=== PATIENT | female | born 1940 | race Caucasian/White ===

== ENCOUNTER → 2018-06-16 | Outpatient (CLI) | payer MEDICARE ==
[~2018-06-16] MED LIST: CALC-709 PO; CHOL10002 PO; FOLIC ACID PO; LEVO75TA5 PO; MAGNESIUM PO; POTASSIUM PO
[2018-06-16 10:20] LABS: BASOPHILS # (AUTO) 0.03 x10^3/uL (0-0.1); BASOPHILS % (AUTO) 1 % (0-1); EOSINOPHILS # (AUTO) 0.14 x10^3/uL (0-0.4); EOSINOPHILS % (AUTO) 2 % (1-7); LYMPHOCYTES # (AUTO) 1.57 x10^3/uL (1-3.4); LYMPHOCYTES % (AUTO) 25 % (22-44); MD NO; MEAN CORPUSCULAR HEMOGLOBIN 31.3 pg (27.0-34.8); MEAN CORPUSCULAR HGB CONC 34.2 g/dL (32.4-35.8); MEAN CORPUSCULAR VOLUME 91.4 fL (80-100); MEAN PLATELET VOLUME 8.6 fL (7.4-10.4); MONOCYTES # (AUTO) 0.37 x10^3/uL (0.2-0.8); MONOCYTES % (AUTO) 6 % (2-9); NEUTROPHILS # (AUTO) 4.23 x10^3/uL (1.8-6.8); NEUTROPHILS % (AUTO) 67 % (42-75); PLATELET COUNT 216 x10^3/uL (130-400); RED CELL DISTRIBUTION WIDTH 13.9 % (9.6-15.2)
[2018-06-16 10:32] LABS: ALBUMIN 3.8 g/dL (3.4-5.0); ANION GAP 8 mmol/L (5-15); CALCIUM 8.8 mg/dL (8.5-10.1); CHLORIDE 107 mmol/L (98-107)
[2018-06-16 10:36] LABS: ALANINE AMINOTRANSFERASE 20 U/L (12-78); ALKALINE PHOSPHATASE 95 U/L (45-117); BILIRUBIN,TOTAL 0.8 mg/dL (0.2-1.0); CREATININE 0.83 mg/dL (0.55-1.02); TOTAL PROTEIN 7.5 g/dL (6.4-8.2)
== END | disposition home or self-care (01) ==
LOC: STAR 09:15
PROVIDERS: ATTEND Specialist
DX: Z01.818 Encounter for other preprocedural examination (principal); R22.1 Localized swelling, mass and lump, neck; Z85.828 Personal history of other malignant neoplasm of skin
CPT/HCPCS: 36415; 80053; 85025; 93005

== ENCOUNTER 2018-06-23 09:19 | Inpatient (IN) | payer MEDICARE ==
[~2018-06-23] VITALS: Ht 149.9 cm; Wt 72.8 kg
[2018-06-23] MEDS ORDERED: LACTATED RINGERS 1,000 ML IV SCH (12:36)
[2018-06-23 12:38] VITALS: BP 159/81
[2018-06-23] MEDS ORDERED: EPHEDRINE 50 MG/ML, 1ML ONE (14:00)
[2018-06-23] MEDS ORDERED: SUCCINYLCHOLINE 20 MG/ML, 10ML ONE (14:00)
[2018-06-23] MEDS ORDERED: PROPOFOL 10 MG/ML, 20ML ONE (14:09)
[2018-06-23] MEDS ORDERED: LIDOCAINE-MPF 2% ,5ML ONE (14:09)
[2018-06-23] MEDS ORDERED: ROCURONIUM 10MG/ML,5ML ONE (14:09)
[2018-06-23] MEDS ORDERED: CEFAZOLIN 1,000 MG ONE (14:10)
[2018-06-23] MEDS ORDERED: FENTANYL PF 100 MCG/2ML ONE ×2 (14:16→17:28)
[2018-06-23] MEDS ORDERED: PROPOFOL 50 ML ONE ×2 (14:31→15:26)
[2018-06-23] MEDS ORDERED: LIDOCAINE 1%-EPI 1:100K, 20ML INFIL ONE (14:55)
[2018-06-23] MEDS ORDERED: ACETAMINOPHEN 325 MG TABLET PO PRN (15:30)
[2018-06-23] MEDS ORDERED: HYDROmorphone 1 MG/ML, 1ML IV PRN ×2 (15:30→19:30)
[2018-06-23] MEDS ORDERED: MORPHINE SULFATE 4 MG/ML, 1ML IVPush PRN (15:30)
[2018-06-23] MEDS ORDERED: HYDROcodone/APAP 7.5-325MG/15ML UDC PO PRN (15:30)
[2018-06-23] MEDS ORDERED: KETOROLAC 30 MG/1 ML IV PRN (15:30)
[2018-06-23] MEDS ORDERED: FENTANYL PF 100 MCG/2ML IV PRN (15:30)
[2018-06-23] MEDS ORDERED: OXYcodone 5 MG/5 ML ORAL.SOL UDC PO PRN (15:30)
[2018-06-23] MEDS ORDERED: MEPERIDINE/PF 25MG/0.5ML IVPush PRN (15:30)
[2018-06-23] MEDS ORDERED: ONDANSETRON 2MG/ML, 2ML ONE (16:52)
[2018-06-23] MEDS ORDERED: OXYcodone 5 MG/5 ML ORAL.SOL UDC ONE (17:28)
[2018-06-23] MEDS ORDERED: ACETAMINOPHEN 650 MG/20.3 ML UDC ONE (17:28)
[2018-06-23] MEDS ORDERED: CEFAZOLIN PMX 2GM/100ML 100 ML IVPB SCH (19:30)
[2018-06-23] MEDS ORDERED: ACETAMINOPHEN 650 MG SUPP PR PRN (19:30)
[2018-06-23] MEDS: LACTATED RINGERS 1,000 ML IV SCH (19:30)
[2018-06-23] MEDS ORDERED: DIPHENHYDRAMINE 50 MG/ML, 1ML IV PRN (19:30)
[2018-06-23] MEDS ORDERED: ONDANSETRON 2MG/ML, 2ML IV PRN (19:30)
[2018-06-23] MEDS ORDERED: DIPHENHYDRAMINE 25 MG CAPSULE PO PRN (19:30)
[2018-06-23 20:30] VITALS: BP 148/77
[2018-06-23] MEDS: SODIUM CHLORIDE FLUSH 10ML SYR IVF SCH (21:00)
[2018-06-23] MEDS: CEFAZOLIN PMX 2GM/100ML 100 ML IVPB SCH (22:27)
[2018-06-24 00:11] VITALS: BP 115/63
[2018-06-24] MEDS: ACETAMINOPHEN 325 MG TABLET PO PRN ×2 (02:13→10:03)
[2018-06-24 03:59] VITALS: BP 104/61
[2018-06-24] MEDS: LACTATED RINGERS 1,000 ML IV SCH (05:30)
[2018-06-24] MEDS ORDERED: LEVOTHYROXINE 75 MCG TABLET PO SCH (06:00)
[2018-06-24] MEDS: CEFAZOLIN PMX 2GM/100ML 100 ML IVPB SCH (06:03)
[2018-06-24 07:34] VITALS: BP 117/69
[2018-06-24] MEDS: SODIUM CHLORIDE FLUSH 10ML SYR IVF SCH (08:40)
[2018-06-24] MEDS ORDERED: CHOLECALCIFEROL 1,000 UNIT TABLET PO SCH (09:00)
[2018-06-24] MEDS ORDERED: CALCIUM/VITAMIN D3 250-125 TABLET PO SCH (09:00)
[2018-06-24] MEDS ORDERED: FOLIC ACID 1 MG TABLET PO SCH (09:00)
[2018-06-24 11:07] VITALS: BP 147/92
[2018-06-24 13:05] VITALS: BP 121/60
[2018-06-24] MEDS ORDERED: HYDR-3653 PO (14:17)
[2018-06-24] MEDS ORDERED: ONDA4TAB7 PO (14:17)
[2018-06-24 14:18] VITALS: BP 121/60
== END 2018-06-24 14:52 | disposition home or self-care (01) | DRG 825 ==
LOC: ORIP 12:04 → EDSTATUS 14:00 → 4NOR 18:44 → DCLOUNGE 06-24 14:36
PROVIDERS: ADMIT Specialist; ATTEND Specialist
PROC: 0CB80ZZ Excision of Right Parotid Gland, Open Approach (ICD-10-PCS; 2018-06-23)
PROC: 00BM0ZZ Excision of Facial Nerve, Open Approach (ICD-10-PCS; 2018-06-23)
PROC: 4A1104G Monitoring of Peripheral Nervous Electrical Activity, Intraoperative, Open Approach (ICD-10-PCS; 2018-06-23)
PROC: 07B10ZZ Excision of Right Neck Lymphatic, Open Approach (ICD-10-PCS; principal; 2018-06-23 14:00)
DX: C77.0 Secondary and unspecified malignant neoplasm of lymph nodes of head, face and neck (principal); M67.40 Ganglion, unspecified site; Z85.828 Personal history of other malignant neoplasm of skin; Z79.899 Other long term (current) drug therapy
CPT/HCPCS: 36415; 86850; 86900; 88305; 88307; 88331; G0378; J0690; J2405; J2704; J3010; J3490; J0330; J7120